=== PATIENT | female | born 1955 | race Caucasian/White ===

== ENCOUNTER → 2022-01-29 | Outpatient (CLI) | payer MEDICARE, OTHER ==
[~2022-01-29] MED LIST: GABAPENTIN600 MG PO; HYDROCODON-ACE1 EAC2 PO; OXYBUTYNIN CHLOR5 M1 PO; ZANTAC150 MG PO
== END ==
LOC: CT 01-19 15:00
DX: R07.0 Pain in throat (principal)
CPT/HCPCS: 70491; Q9967

== ENCOUNTER → 2022-02-02 | Outpatient (CLI) | payer MEDICARE, OTHER | LOC: LAB 13:32 | DX: R06.02 Shortness of breath (principal); R53.83 Other fatigue; K44.9 Diaphragmatic hernia without obstruction or gangrene | CPT/HCPCS: 36415; 71045; 83880 ==